=== PATIENT | male | born 1980 | race Caucasian/White ===

== ENCOUNTER 2022-11-28 08:00 | Emergency (ER) | payer OTHER, SELFPAY ==
[2022-11-28 08:06] VITALS: BP 121/90; PULSE 67; RESP 16; O2SAT 99; BMI 30.4
--- NOTE | 2022-11-28 08:13 | XR_ITS ---
WS: [id number] Chest 2 views, 11/28/2022 Clinical Data: dizziness Comparison: None. Findings: No nodules, masses or effusions are seen. The heart is normal. The pulmonary vascularity is not increased. No pneumonia or pneumothorax is seen. There are monitor leads on the chest wall. XR/XR chest 2V* [id number] Impression: Negative chest.
--- NOTE | 2022-11-28 08:16 | ECG_ITS ---
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 Measurements Intervals [place] Rate: 58 P: 49 NM: 142 QRS: 25 QRSD: 107 T: 42 QT: 400 QTc: 394 Interpretive Statements SINUS BRADYCARDIA WITH SINUS ARRHYTHMIA INCOMPLETE RIGHT BUNDLE BRANCH BLOCK [90+ ms QRS DURATION, TERMINAL R IN V1/V2, 40+ ms S IN I/aVL/V4/V5/V6] No previous ECG available for comparison Electronically Signed On 11-28-2022 14:18:57 CDT by Ender Mora M.D. [email or web address] hospitalVirtifym[email or web address]/store/NU/[id number] f
--- NOTE | 2022-11-28 08:21 | ED_ITS ---
HPI - Arrhythmia/Palpitations General: Chief Complaint: Arrhythmia/Palpitations Stated Complaint: irregular hr, dizzy Time Seen by Provider: 11/28/22 08:05 History of Present Illness: 42-year-old male presents emergency department chief complaint of having episode of dizziness prior to arrival reports he woke up this morning which he felt dizzy his checked on him which noted that his heart rate was in the 40s patient does not recall any known history of underlying heart issues reports no prior history of diabetes high blood pressure reports. No high blood pressure medications. Patient reports his symptoms with a since resolved he reports no other prior history other underlying issues. Associated symptoms: Deny anxiety, nausea or vomiting Review of Systems General: Reports: 10 or more systems reviewed and unremarkable except in HPI and below Const: Denies: fever(s), chills, fatigue or malaise Eyes: Denies: change in vision or blurry vision Card: Denies: chest pain or palpitations Resp: Denies: dyspnea or productive cough GI: Denies: abdominal pain, nausea or vomiting : Denies: flank pain Musc: Denies: extremity pain or extremity swelling Skin/Breast: Denies: rash or pruritus Neuro: Reports: dizziness Psych: Denies: anxiety or depression Carl/Lymph: Denies: easy bleeding All/Imm: Denies: urticaria, throat swelling or facial swelling Physical Exam Const: COMMON NORMALS: no acute distress, patient oriented x3 and healthy appearing HENMT: COMMON NORMALS: normocephalic and atraumatic HEAD & SCALP: normoce phalic and atraumatic Eye: COMMON NORMALS: Equal, round and reactive pupils present and EOMs intact bilaterally PUPIL: Yes Equal, round and reactive pupils present Neck/C-Spine: COMMON NORMALS: full ROM, supple and no JVD Lymph: LYMPHATIC: no lymphadenopathy noted Chest: COMMONS NORMALS: normal inspection of the chest and normal palpation of entire chest wall Resp: COMMON NORMALS: normal respiratory effort, No retractions and clear to auscultation bilaterally EFFORT & INSPECTION: Yes able to speak in complete sentences and Yes symmetric chest movement AUSCULTATION: clear to auscultation bilaterally Cardio: COMMON NORMALS: no JVD, regular rate and regular rhythm RATE: regular rate RHYTHM: regular rhythm GI: COMMON NORMALS: Normal to inspection, nondistended, normoactive bowel s ounds present, Soft to palpation and non-tender INSPECTION: Yes normal to inspection PALPATION: Yes Soft to palpation : COMMON NORMALS: Yes no CVA tenderness BLADDER/KIDNEY EXAM: Yes no CVA tenderness Back/Pelvis: COMMON NORMALS: no CVA tenderness Extremity: COMMON NORMALS: normal to inspection and full ROM Neuro: COMMON NORMALS: patient oriented x3, CN's II-XII intact bilaterally, moves all extremities and no focal motor deficits OTHER: No focal neurodeficits appreciated GCS of 15 NIH of 0 Psych: COMMON NORMALS: mental status grossly normal, Normal thought process present, cooperative and normal affect THOUGHT PROCESS: Normal thought process present Skin: COMMON NORMALS: no rashes or lesions noted GENERAL SKIN EXAM: no rashes or lesions noted Course Vital Signs: Vital signs: Vital Signs Pulse Rate 67 11/28/22 08:06 Respiratory Rate 16 11/28/22 08:06 Blood Pressure 121/90 11/28/22 08:06 Pulse Oximetry 99 11/28/22 08:06 Oxygen Delivery Me thod Room Air 11/28/22 08:06 MDM - Arrhythmia/Palpitations Medical Decision Making Due to the patient's symptoms and condition I will be established IV fluids provided for hydration lab work imaging including CAT scans of the head will be obtained patient does not report having any chest pain or shortness of breath associated with his irregular heart rate at times reported that prior to arrival which he checked his pulse rate for about 20 minutes he was running in the 40s. Patient does not endorse any prior history underlying cardiac issues we will continue to follow. Patient's cardiac troponins came back unremarkable x2 patient was found to be in sinus rhythm rate of [address] segment elevation depressions noted advised patient that he may require further follow- up with primary care in 3 to 5 days which patient was advised to return the interim if any of his symptoms persist or worse. Lab Data 11/28/22 08:20 11/28/22 08:20 Radiology Impressions Chest X-Ray 11/28/22 08:13 Impression: Negative chest. Head CT 11/28/22 08:23 IMPRESSION: No acute intracranial abnormality. Laboratory Results WBC 5.4 10^3/uL (4.0-10.0) 11/28/22 08:20 RBC 4.90 10^6/uL (4.1-5.3) 11/28/22 08:20 Hgb 14.5 g/dL (11.7-16.6) 11/28/22 08:20 Hct 45.5 % (42.0-52.0) 11/28/22 08:20 MCV 92.9 fl (80-94) 11/28/22 08:20 MCH 29.6 pg (28.0-34.0) 11/28/22 08:20 MCHC 31.9 g/dL (30.0-36.0) 11/28/22 08:20 RDW 12.0 % (12.1-15.1) L 11/28/22 08:20 Plt Count 257 10^3/cmm (130-400) 11/28/22 08:20 MPV 9.1 fL (7.4-10.4) 11/28/22 08:20 Neut % (Auto) 58.2 % 11/28/22 08:20 Lymph % (Auto) 27.0 % 11/28/22 08:20 [place] % (Auto) 11.3 % 11/28/22 08:20 Eos % (Auto) 1.8 % 11/28/22 08:20 Baso % (Auto) 1.3 % 11/28/22 08:20 Neut # (Auto) 3.15 10^3/uL (1.8-7.7) 11/28/22 08:20 Lymph # (Auto) 1.5 10^3/uL (0.8-4.8) 11/28/22 08:20 [place] # (Auto) 0.6 10^3/uL (0.2-0.9) 11/28/22 08:20 Eos # (Auto) 0.1 10^3/uL (0.0-0.8) 11/28/22 08:20 Baso # (Auto) 0.1 10^3/uL (0.0-0.1) 11/28/22 08:20 Nucleated RBC % (auto) 0 % 11/28/22 08:20 Nucleated RBCs # 0.0 /100WBC 11/28/22 08:20 Sodium 137 mmol/L (136-145) 11/28/22 08:20 Potassium 4.2 mmol/L (3.5-5.1) 11/28/22 08:20 Chloride 102 mmol/L (98-107) 11/28/22 08:20 Carbon Dioxide 26 mmol/L (22-29) 11/28/22 08:20 Anion Gap 13.2 (5-19) 11/28/22 08:20 BUN 12 mg/dL (6-20) 11/28/22 08:20 Creatinine 1.0 mg/dL (0.7-1.2) 11/28/22 08:20 GFR Calculation 82.3 mL/min (90-130) L 11/28/22 08:20 Glucose 97 mg/dL (65-115) 11/28/22 08:20 Calculated Osmolality 284 mOsm/kg (285-295) L 11/28/22 08:20 Calcium 9.2 mg/dL (8.5-10.5) 11/28/22 08:20 Total Bilirubin 0.3 mg/dL (0.15-1.2) 11/28/22 08:20 AST 23 U/L (0-40) 11/28/22 08:20 ALT 30 U/L (0-41) 11/28/22 08:20 Alkaline Phosphatase 68 U/L (40-130) 11/28/22 08:20 Troponin T Baseline 6 ng/L (0-15) 11/28/22 08:20 Troponin T 120 Minute 6.00 ng/L (0-15) 11/28/22 10:27 Delta Troponin T 0 ABS# (0-10) 11/28/22 10:27 C-Reactive Protein 3.0 mg/L (0.0-4.9) 11/28/22 08:20 NT-Pro-B Natriuret Pep 36 pg/mL (0-125) 11/28/22 08:20 Total Protein 6.6 g/dL (6.6-8.7) 11/28/22 08:20 Albumin 4.4 g/dL (3.5-5.2) 11/28/22 08:20 Globulin 2.2 g/dL (1.3-4.6) 11/28/22 08:20 EKG Data Sinus bradycardia with sinus arrhythmia right bundle branch block rate of [address] segment elevations or depressions appreciated: Other EKG comments: Chest X-Ray 11/28/22 08:13 Impression: Negative chest. Head CT 11/28/22 08:23 IMPRESSION: No acute intracranial abnormality. Discharge Plan Discharge Patient Disposition: Home Clinical Impression: Bradycardia, unspecified Condition: Stable Prescriptions: No Action No Known Home Medications Discharge Orders: Discharge ED (Routine); Ordered 11/28/22 Ordered By: William Bales Referrals: Rock Morton MD [Primary Care Provider] - Patient Instructions: Opioid Safety, Pain Management Coding Level of Care Code ED Merchant Miller for Rhonda Ogden
--- NOTE | 2022-11-28 08:23 | CTR_ITS ---
PROCEDURE INFORMATION: Exam: CT Head Without Contrast Exam date and time: 11/28/2022 8:44 AM Age: 42 years old Clinical indication: Dizziness; Additional info: Dizziness with near syncope TECHNIQUE: Imaging protocol: Computed tomography of the head without contrast. Radiation optimization: All CT scans at this facility use at least one of these dose optimization techniques: automated exposure control; mA and/or kV adjustment per patient size (includes targeted exams where dose is matched to clinical indication); or iterative reconstruction. REPORTING DATA: Count of CT and Cardiac NM exams in prior 12 months: This patient has received 0 known CTs and 0 known cardiac nuclear medicine studies in the 12 months prior to the current study. COMPARISON: No relevant prior studies available. RADIATION DOSE METRICS: Total DLP (mGy-cm): 1059.16 FINDINGS: Brain: Normal. No hemorrhage. Unremarkable white matter. No mass effect. Cerebral ventricles: No ventriculomegaly. Paranasal sinuses: Visualized sinuses are unremarkable. No fluid levels. Mastoid air cells: Visualized mastoid air cells are well aerated. Bones/joints: Unremarkable. No acute fracture. Soft tissues: Unremarkable. CT/CT head wo con* [id number] IMPRESSION: No acute intracranial abnormality.
[2022-11-28] MEDS: sodium chloride 0.9% 1,000 ML 999 ML IV (08:36)
[2022-11-28 08:41] LABS: Basophils # 0.1 10^3/uL (0.0-0.1); Basophils % 1.3 %; Eosinophils # 0.1 10^3/uL (0.0-0.8); Eosinophils % 1.8 %; Hematocrit 45.5 % (42.0-52.0); Hemoglobin 14.5 g/dL (11.7-16.6); Lymphocytes # 1.5 10^3/uL (0.8-4.8); Mean Corpuscular HGB Conc 31.9 g/dL (30.0-36.0); Mean Corpuscular Hemoglobin 29.6 pg (28.0-34.0); Mean Corpuscular Volume 92.9 fl (80-94); Mean Platelet Volume 9.1 fL (7.4-10.4); Monocytes # 0.6 10^3/uL (0.2-0.9); Monocytes % 11.3 %; Neutrophils # 3.15 10^3/uL (1.8-7.7); Neutrophils % 58.2 %; Nucleated Red Blood Cells % 0 %; Platelet Count 257 10^3/cmm (130-400); White Blood Count 5.4 10^3/uL (4.0-10.0)
[2022-11-28 09:12] LABS: Troponin(5th) Baseline 6 ng/L (0-15)
[2022-11-28 09:22] LABS: Alanine Aminotransferase 30 U/L (0-41); Albumin Level 4.4 g/dL (3.5-5.2); Alkaline Phosphatase 68 U/L (40-130); Anion Gap 13.2 (5-19); Aspartate Amino Transferase 23 U/L (0-40); Blood Urea Nitrogen 12 mg/dL (6-20); Calcium 9.2 mg/dL (8.5-10.5); Carbon Dioxide 26 mmol/L (22-29); Chloride 102 mmol/L (98-107); Globulin 2.2 g/dL (1.3-4.6); Glomerular Filtration Rate 82.3 mL/min (90-130); Glucose 97 mg/dL (65-115); NT Pro B Type Natriuretic Pept 36 pg/mL (0-125); Osmolality Calculated 284 mOsm/kg (285-295); Potassium 4.2 mmol/L (3.5-5.1); Sodium 137 mmol/L (136-145); Total Bilirubin 0.3 mg/dL (0.15-1.2); Total Protein 6.6 g/dL (6.6-8.7)
--- NOTE | 2022-11-28 10:16 | ECG_ITS ---
[facility] Test Date: 2022-11-28 Pat Name: Arnoldo Ulloa Department: Room: Gender: Male Dba: : 1980 Requested By: William Bales Order Number: [id number] Fuentes MD: Ender Mora M.D. Measurements Intervals [place] Rate: 53 P: 27 UT: 133 QRS: 34 QRSD: 106 T: 45 QT: 406 QTc: 381 Interpretive Statements SINUS BRADYCARDIA Compared to ECG 11/28/2022 08:12:43 Sinus arrhythmia no longer present Incomplete right bundle-branch block no longer present Electronically Signed On 11-28-2022 14:25:43 CDT by Ender Mora M.D. [email or web address] health centerBovie Medicaluniversity hospitals elyria medical centerViedea/store/OM/[id number]
[2022-11-28 11:20] LABS: Troponin 5 2HR Delta 0 ABS# (0-10)
[2022-11-28 12:20] VITALS: BP 108/76; PULSE 73; RESP 14; O2SAT 99
== END 2022-11-28 12:21 | disposition home or self-care (01) ==
PROVIDERS: Emergency Provider Emergency Medicine; PCP Family Medicine
DX: R00.1 Bradycardia, unspecified (principal)
CPT/HCPCS: 36415; 70450; 71046; 80053; 83880; 84484; 85025; 86140; 93005; 96360; 99285; J7030

== ENCOUNTER → 2022-11-30 08:38 | Outpatient (BNVA) | payer OTHER, SELFPAY | PROVIDERS: PCP Family Medicine; Visit Provider Family Medicine | DX: R53.81 Other malaise (principal); R53.83 Other fatigue; R00.1 Bradycardia, unspecified; E78.5 Hyperlipidemia, unspecified | CPT/HCPCS: 80061; 83735; 84439; 84443 ==

== ENCOUNTER → 2023-05-17 08:39 | Outpatient (BNVA) | payer OTHER, SELFPAY | PROVIDERS: PCP Family Medicine; Visit Provider Family Medicine | DX: E78.5 Hyperlipidemia, unspecified (principal) | CPT/HCPCS: 80061 ==

== ENCOUNTER → 2023-08-21 08:03 | Outpatient (BNVA) | payer OTHER, SELFPAY | PROVIDERS: PCP Family Medicine; Visit Provider Family Medicine | DX: Z51.81 Encounter for therapeutic drug level monitoring (principal); Z13.220 Encounter for screening for lipoid disorders | CPT/HCPCS: 80053; 80061 ==

== ENCOUNTER 2024-11-28 03:12 | Emergency (ER) | payer OTHER, SELFPAY ==
[2024-11-28 03:19] VITALS: BP 111/78; PULSE 70; RESP 20; TEMP 36.6; O2SAT 99; BMI 29.6
--- NOTE | 2024-11-28 03:28 | ECG_ITS ---
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 Measurements Intervals [place] Rate: 69 P: 59 HI: 151 QRS: 51 QRSD: 111 T: 48 QT: 391 QTc: 422 Interpretive Statements SINUS RHYTHM MODERATE INTRAVENTRICULAR CONDUCTION DELAY [110+ ms QRS DURATION] Compared to ECG 11/28/2022 10:42:31 Intraventricular conduction delay now present Sinus bradycardia no longer present Electronically Signed On 11-30-2024 09:21:36 CDT by Chandler Live M.D. [id number] [id number]
[2024-11-28 03:32] VITALS: BP 111/78; PULSE 68; RESP 18; O2SAT 100
[2024-11-28] MEDS: ondansetron 2 mg/ML SDV 2 mL 4 MG IVP (03:32)
[2024-11-28 03:33] LABS: Basophils # 0.1 10^3/uL (0.0-0.1); Basophils % 1.3 %; Eosinophils # 0.1 10^3/uL (0.0-0.8); Eosinophils % 1.9 %; Hematocrit 43.7 % (37-53); Lymphocytes # 2.5 10^3/uL (0.8-4.8); Mean Corpuscular HGB Conc 33.6 g/dL (30-55); Mean Corpuscular Hemoglobin 30.6 pg (27-33); Mean Corpuscular Volume 90.9 fl (82-101); Mean Platelet Volume 8.9 fL (7.4-10.4); Monocytes # 0.7 10^3/uL (0.2-0.9); Monocytes % 9.7 %; Neutrophils # 3.71 10^3/uL (1.8-7.7); Neutrophils % 51.7 %; Nucleated Red Blood Cells % 0 %; Platelet Count 229 10^3/cmm (157-399); Red Blood Count 4.81 10^6/uL (3.85-5.65); White Blood Count 7.19 10^3/uL (3.29-11.43)
--- NOTE | 2024-11-28 03:50 | ED_ITS ---
HPI - Dizziness 2 General: Chief Complaint: Dizziness Stated Complaint: extreme dizzy cant look up n/v Time Seen by Provider: 11/28/24 03:32 History of Present Illness: HPI Narrative: 44 year old patient presents with acute onset vertigo that began this morning. Symptoms started when patient rolled over in bed, initially experiencing mild dizziness. Upon second attempt to roll over, dizziness worsened significantly. When attempting to get up to use the bathroom, patient experienced severe vertigo with associated vomiting. Symptoms are notably position-dependent and exacerbated by head movement, particularly rapid movements. Patient reports improvement when remaining still, though now experiences dizziness with eyes closed after receiving anti-emetic medication. Patient has experienced multiple episodes of vomiting (approximately 5 times) including during transport to the facility. Partner notes patient was diaphoretic during initial onset. Of note, patient had a similar but much milder episode approximately one week ago with mild dizziness and fatigue. At that time, blood sugar was 82 mg/dL at 10:00 AM (3 hours after eating). Symptoms improved with ibuprofen and nasal irrigation. No prior history of similar severe vertigo episodes. Denies fever. No other associated symptoms reported. Related Data Home Medications ?Medication ?Instructions ?Recorded ?Confirmed omega-3 acid ethyl esters 1 gram 1 cap PO TID 02/15/23 11/11/23 capsule Previous Rx's ?Medication ?Instructions ?Recorded prednisone 10 mg tablet See Rx Instructions PO DAILY #14 11/19/23 tabs atorvastatin 10 mg tablet 10 mg PO DAILY #30 tabs 06/28 02/18 Allergies Allergy/AdvReac Type Severity Reaction Status Date / Time No Known Allergies Allergy Verified 11/11/23 10:22 Review of Systems 2 General: Reports: 10 or more systems reviewed and unremarkable except in HPI and below PFSH ED 2 PFSH: Medical History Dyslipidemia Surgical History History of hernia repair Right - 2007 Social History Smoking and tobacco/nicotine status: never used tobacco/nicotine Alcohol intake: current Alcohol intake frequency: holidays/special occasions only Substance/Drug Use: never 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 Physical Exam 2 Const: COMMON NORMALS: no acute distress, patient oriented x3, alert and well nourished HENMT: COMMON NORMALS: normocephalic HEAD & SCALP: normocephalic Eye: COMMON NORMALS: Equal, round and reactive pupils present, EOMs intact bilaterally and conjunctivae normal CONJUNCTIVA: Yes conjunctivae normal P UPIL: Yes Equal, round and reactive pupils present Neck/C-Spine: COMMON NORMALS: full ROM, no lymphadenopathy, supple, no meningeal signs, no JVD and Thyroid normal THYROID: Thyroid normal Chest: COMMONS NORMALS: normal inspection of the chest and normal palpation of entire chest wall Resp: COMMON NORMALS: normal respiratory effort, No retractions, No use of accessory muscles, clear to auscultation bilaterally and percussion normal A USCULTATION: clear to auscultation bilaterally PERCUSSION: percussion normal Cardio: COMMON NORMALS: no JVD GI: COMMON NORMALS: Normal to inspection, nondistended, normoactive bowel sounds present, Soft to palpation, non-tender, No hepatosplenomegaly present, no masses and no bruits PALPATION: Yes Soft to palpation and Yes No hepatosplenomegaly present : COMMON NORMALS: Yes no CVA tenderness BLADDER/KIDNEY EXAM: Yes no CVA tenderness Back/Pelvis: COMMON NORMALS: no CVA tenderness Extremity: COMMON NORMALS: normal to inspection, full ROM, capillary refill normal, no joint enlargement, no clubbing, cyanosis or edema, no calf tenderness and no pedal edema Neuro: COMMON NORMALS: patient oriented x3 SENSORIUM/ORIENTATION: Yes alert MENINGEAL SIGNS: Yes no meningeal signs Skin: COMMON NORMALS: no rashes or lesions noted, turgor normal and no jaundice GENERAL SKIN EXAM: no rashes or lesions noted and turgor normal Course 2 Vital Signs: Vital signs: Vital Signs Temperature 98 F 11/28/24 03:19 Pulse Rate 68 11/28/24 03:32 Respiratory Rate 18 11/28/24 03:32 Blood Pressure 111/78 11/28/24 03:32 Pulse Oximetry 100 11/28/24 03:32 Oxygen Delivery Me thod Room Air 11/28/24 03:32 MDM - Dizziness Medical Decision Making Assessment: 1. Benign Paroxysmal Positional Vertigo (BPPV) - Most likely diagnosis based on: - Classic presentation with positional vertigo triggered by rolling over in bed - Associated severe nausea and vomiting - No other neurological symptoms Differential diagnoses to consider: - Vestibular neuritis/labyrinthitis (possible viral etiology) - Less likely but to be ruled out: serious central causes Plan: 1. Obtain routine laboratory studies 2. Patient education on home management: - Instructions provided for Half-Somersault maneuver (Foster maneuver) for BPPV - Directed to online resources for technique demonstration 3. Consider vestibular rehabilitation if symptoms persist 4. Anti-emetic medication continued as needed 5. Follow-up as needed if symptoms persist or worsen Differential Diagnosis Likely adverse reaction to drug, benign paroxysmal positional vertigo, orthostatic hypotension and acute vestibular neuronitis Lab Data 11/28/24 03:26 11/28/24 03:26 Laboratory Results WBC 7.19 10^3/uL (3.29-11.43) 11/28/24 03: RBC 4.81 10^6/uL (3.85-5.65) 11/28/24 03:26 Hgb 14.70 g/dL (11.27-16.99) 11/28/24 03:26 Hct 43.7 % (37-53) 11/28/24 03:26 MCV 90.9 fl (82-101) 11/28/24 03:26 MCH 30.6 pg (27-33) 11/28/24 03:26 MCHC 33.6 g/dL (30-55) 11/28/24 03:26 RDW 12.0 % (12.1-15.1) L 11/28/24 03:26 Plt Count 229 10^3/cmm (157-399) 11/28/24 03:26 MPV 8.9 fL (7.4-10.4) 11/28/24 03:26 Neut % (Auto) 51.7 % 11/28/24 03:26 Lymph % (Auto) 35.0 % 11/28/24 03:26 [place] % (Auto) 9.7 % 11/28/24 03:26 Eos % (Auto) 1.9 % 11/28/24 03:26 Baso % (Auto) 1.3 % 11/28/24 03:26 Neut # (Auto) 3.71 10^3/uL (1.8-7.7) 11/28/24 03:26 Lymph # (Auto) 2.5 10^3/uL (0.8-4.8) 11/28/24 03:26 [place] # (Auto) 0.7 10^3/uL (0.2-0.9) 11/28/24 03:26 Eos # (Auto) 0.1 10^3/uL (0.0-0.8) 11/28/24 03:26 Baso # (Auto) 0.1 10^3/uL (0.0-0.1) 11/28/24 03:26 Nucleated RBC % (auto) 0 % 11/28/24 03:26 Nucleated RBCs # 0.0 /100WBC 11/28/24 03:26 Sodium 139 mmol/L (136-145) 11/28/24 03:26 Potassium 4.0 mmol/L (3.5-5.1) 11/28/24 03:26 Chloride 104 mmol/L (98-107) 11/28/24 03:26 Carbon Dioxide 26 mmol/L (22-29) 11/28/24 03:26 Anion Gap 13.0 (5-19) 11/28/24 03:26 BUN 16 mg/dL (6-20) 11/28/24 03:26 Creatinine 1.0 mg/dL (0.7-1.2) 11/28/24 03:26 GFR Calculation 81.6 mL/min (90-130) L 11/28/24 03:26 Glucose 138 mg/dL (65-115) H 11/28/24 03:26 Calculated Osmolality 291 mOsm/kg (285-295) 11/28/24 03:26 Calcium 8.8 mg/dL (8.5-10.5) 11/28/24 03:26 No radiology studies performed this visit Discharge Plan Discharge Patient Disposition: Home Clinical Impression: Benign paroxysmal positional vertigo Condition: Stable Prescriptions: No Action omega-3 acid ethyl esters 1 gram capsule 1 cap PO TID prednisone 10 mg tablet See Rx Instructions PO DAILY Qty: 14 0RF Rx Instructions: 20 mg (2 tabs) daily X 4 days, then 10 mg (1 tab) daily X 4 days, then 5 mg daily (half tab) X 4 days then stop. atorvastatin 10 mg tablet 10 mg PO DAILY Qty: 30 6RF Discharge Orders: Discharge ED (Routine); Ordered 11/28/24 Ordered By: Nick Valenzuela Referrals: Rock Morton MD [Primary Care Provider, Family Practice] Discharge Diet: Full LIquid Discharge Activity: Limit activity as instructed Patient Instructions: Opioid Safety, Pain Management Activity Restrictions/Additional Instructions: 1. Consider meclizine if half somersault maneuvers do not resolve the symptoms. Follow-up with primary care next week if still symptomatic. Print Language: Citizen Of [place] Coding Level of Care Code ED Pharmacy Helper for Rhonda Ogden
[2024-11-28 03:55] LABS: Blood Urea Nitrogen 16 mg/dL (6-20); Calcium 8.8 mg/dL (8.5-10.5); Carbon Dioxide 26 mmol/L (22-29); Chloride 104 mmol/L (98-107); Creatinine Clr Calc Pharmacy 102.9553; Glomerular Filtration Rate 81.6 mL/min (90-130); Glucose 138 mg/dL (65-115); Osmolality Calculated 291 mOsm/kg (285-295); Sodium 139 mmol/L (136-145)
[2024-11-28 04:27] VITALS: BP 100/67; PULSE 80; RESP 16; O2SAT 100
== END 2024-11-28 04:28 | disposition home or self-care (01) ==
PROVIDERS: Emergency Provider Family Medicine; PCP Family Medicine
DX: H81.10 Benign paroxysmal vertigo, unspecified ear (principal); E78.5 Hyperlipidemia, unspecified
CPT/HCPCS: 36415; 80048; 85025; 93005; 96374; 99284; J2405

== ENCOUNTER → 2025-05-04 08:05 | Outpatient (BNVA) | payer OTHER, SELFPAY | PROVIDERS: PCP Family Medicine; Visit Provider Family Medicine | DX: Z51.81 Encounter for therapeutic drug level monitoring (principal); Z00.00 Encounter for general adult medical examination without abnormal findings; R73.09 Other abnormal glucose; Z13.6 Encounter for screening for cardiovascular disorders; E78.5 Hyperlipidemia, unspecified | CPT/HCPCS: 80053; 80061; 83036; 85025 ==